=== PATIENT | female | born 1935 | race Caucasian/White ===

== ENCOUNTER 2017-08-14 07:30 | Inpatient (IN) | payer MEDICARE, OTHER ==
[~2017-08-14] VITALS: Ht 165.1 cm; Wt 70.0 kg
[2017-08-14] MEDS ORDERED: PLEASE ENTER ALLERGIES MC SCH (08:00)
[2017-08-14] MEDS ORDERED: SODIUM CHLORIDE 0.9% 1,000ML IVBOLUS ONE ×2 (08:00→12:00)
[2017-08-14] MEDS ORDERED: ACETAMINOPHEN 500 MG TABLET PO ONE (08:00)
[2017-08-14] MEDS ORDERED: PLEASE ENTER HEIGHT AND WEIGHT MC SCH (08:00)
[2017-08-14 08:41] LABS: ALANINE AMINOTRANSFERASE 36 U/L (12-78); ALBUMIN 3.2 g/dL (3.4-5.0); ANION GAP 10 mmol/L (5-15); CALCIUM 9.5 mg/dL (8.5-10.1); CHLORIDE 110 mmol/L (98-107); CREATININE 1.16 mg/dL (0.55-1.02)
[2017-08-14 08:44] LABS: ALKALINE PHOSPHATASE 67 U/L (45-117); BILIRUBIN,TOTAL 2.2 mg/dL (0.2-1.0); TOTAL PROTEIN 7.2 g/dL (6.4-8.2)
[2017-08-14 08:56] LABS: MEAN CORPUSCULAR HEMOGLOBIN 33.1 pg (27.0-34.8); MEAN CORPUSCULAR HGB CONC 34.2 g/dL (32.4-35.8); MEAN CORPUSCULAR VOLUME 96.8 fL (80-100); MEAN PLATELET VOLUME 9.5 fL (7.4-10.4); PLATELET COUNT 61 x10^3/uL (130-400); RED BLOOD COUNT 3.56 x10^6/uL (3.82-5.3); RED CELL DISTRIBUTION WIDTH 14.2 % (9.6-15.2)
[2017-08-14 08:57] LABS: MD YES
[2017-08-14 09:02] LABS: BAND#(MANUAL) 2.67 x10^3/uL; BANDS%(MANUAL) 23 % (0-7); EOS#(MANUAL) 0.12 x10^3/uL (0.0-0.4); EOS% (MANUAL) 1 % (1-7); LYMPH#(MANUAL) 0.35 x10^3/uL (1-3.4); LYMPHS% (MANUAL) 3 % (22-44); MONOS#(MANUAL) 0.81 x10^3/uL (0.3-2.7); MONOS% (MANUAL) 7 % (2-9); SEG#(MANUAL) 7.66 x10^3/uL (1.8-6.8); SEGS% (MANUAL) 66 % (42-75)
[2017-08-14 09:03] LABS: <PLATELET ESTIMATE> DECREASED; <RBC MORPHOLOGY> NORMAL
[2017-08-14 09:04] LABS: LARGE PLATELETS 1+
[2017-08-14] MEDS ORDERED: MELO15TA24 PO (09:06)
[2017-08-14] MEDS ORDERED: METF500T5 PO (09:06)
[2017-08-14] MEDS ORDERED: MAGNESIUM PEG (09:06)
[2017-08-14] MEDS ORDERED: LOSA1TAB25 PO (09:06)
[2017-08-14] MEDS ORDERED: SIMV10TA3 PO (09:06)
[2017-08-14] MEDS ORDERED: MULT-658 PO (09:06)
[2017-08-14] MEDS ORDERED: VITAMIN D PO (09:06)
[2017-08-14] MEDS ORDERED: METO50TA4 PO (09:06)
[2017-08-14] MEDS ORDERED: FISH OIL PO (09:06)
[2017-08-14] MEDS ORDERED: PREG75CA PO (09:06)
[2017-08-14] MEDS ORDERED: AMLO10TA2 PO (09:06)
[2017-08-14 09:43] LABS: CULTURE INDICATED? YES; MICROSCOPIC INDICATED
[2017-08-14] MEDS ORDERED: ACETAMINOPHEN 500 MG TABLET ONE (09:58)
[2017-08-14] MEDS ORDERED: ACETAMINOPHEN 325 MG SUPP ONE (10:07)
[2017-08-14] MEDS ORDERED: ACETAMINOPHEN 650 MG SUPP PR ONE (10:30)
[2017-08-14] MEDS ORDERED: ACETAMINOPHEN 120 MG SUPP PR ONE (10:30)
[2017-08-14] MEDS ORDERED: CEFTRIAXONE PMX 1GM/50ML 50 ML IVPB ONE (11:00)
[2017-08-14] MEDS ORDERED: AZITHROMYCIN 500 MG in SODIUM CHLORIDE 0.9% 250 ML IV ONE (11:00)
[2017-08-14] MEDS ORDERED: CEFTRIAXONE PMX 1GM/50ML 50 ML ONE (11:29)
[2017-08-14] MEDS ORDERED: ONDANSETRON ODT 4 MG PO PRN (13:00)
[2017-08-14] MEDS ORDERED: LABETALOL 5MG/ML, 20ML IVPush PRN (13:00)
[2017-08-14] MEDS ORDERED: LACTATED RINGERS 1,000 ML IV SCH (13:00)
[2017-08-14] MEDS ORDERED: ONDANSETRON 2MG/ML, 2ML IVPush PRN (13:00)
[2017-08-14 13:01] LABS: INTERNATIONAL NORMALIZED RATIO 1.24 (0.93-1.1); PROTHROMBIN TIME 12.7 Seconds (9.6-11.5)
[2017-08-14 13:12] LABS: FREE T4 (FREE THYROXINE) 1.27 ng/dL (0.76-1.46); THYROID STIMULATING HORMONE 1.52 mIU/L (0.358-3.740)
[2017-08-14 14:38] VITALS: BP 132/51
[2017-08-14 15:34] VITALS: BP 128/63
[2017-08-14] MEDS ORDERED: POTASSIUM PHOSPHATE 44 MEQ in SODIUM CHLORIDE 0.9% 500 ML IV ONE (19:30)
[2017-08-14] MEDS ORDERED: SODIUM PHOSPHATE 4 MEQ/ML IV SCH (19:30)
[2017-08-14] MEDS ORDERED: SODIUM PHOSPHATE 30 MMOL in SODIUM CHLORIDE 0.9% 500 ML IV ONE (19:30)
[2017-08-14] MEDS ORDERED: MAGNESIUM SULFATE PMX 4GM/100M 100 ML IV ONE (19:30)
[2017-08-14 19:45] VITALS: BP 137/54
[2017-08-14] MEDS: CEFTRIAXONE PMX 1GM/50ML 50 ML IV SCH (20:51)
[2017-08-14] MEDS: PANTOPRAZOLE 40 MG IV IVPush SCH (21:59)
[2017-08-14] MEDS: RIFAXIMIN 550 MG TABLET PO SCH (21:59)
[2017-08-14] MEDS: SIMVASTATIN 10 MG TABLET PO SCH (21:59)
[2017-08-14] MEDS: LACTULOSE 20 GM/30 ML UDC PO SCH (21:59)
[2017-08-14] MEDS: DOXYCYCLINE 100MG TABLET PO SCH ×2 (21:59→22:00)
[2017-08-15 02:36] VITALS: BP 128/56
[2017-08-15 05:30] LABS: CHLORIDE 110 mmol/L (98-107)
[2017-08-15 05:38] LABS: ALANINE AMINOTRANSFERASE 32 U/L (12-78); ALBUMIN 2.5 g/dL (3.4-5.0); ALKALINE PHOSPHATASE 49 U/L (45-117); ANION GAP 9 mmol/L (5-15); BILIRUBIN,TOTAL 1.9 mg/dL (0.2-1.0); CALCIUM 8.4 mg/dL (8.5-10.1); CREATININE 0.93 mg/dL (0.55-1.02); TOTAL PROTEIN 5.9 g/dL (6.4-8.2)
[2017-08-15 06:03] LABS: BASOPHILS # (AUTO) 0.02 x10^3/uL (0-0.1); BASOPHILS % (AUTO) 0 % (0-1); EOSINOPHILS # (AUTO) 0.15 x10^3/uL (0-0.4); EOSINOPHILS % (AUTO) 2 % (1-7); LYMPHOCYTES # (AUTO) 0.62 x10^3/uL (1-3.4); LYMPHOCYTES % (AUTO) 10 % (22-44); MD SCAN; MEAN CORPUSCULAR HEMOGLOBIN 34.3 pg (27.0-34.8); MEAN CORPUSCULAR HGB CONC 35.1 g/dL (32.4-35.8); MEAN CORPUSCULAR VOLUME 97.7 fL (80-100); MEAN PLATELET VOLUME 9.6 fL (7.4-10.4); MONOCYTES # (AUTO) 0.47 x10^3/uL (0.2-0.8); MONOCYTES % (AUTO) 7 % (2-9); NEUTROPHILS # (AUTO) 5.12 x10^3/uL (1.8-6.8); NEUTROPHILS % (AUTO) 80 % (42-75); RED BLOOD COUNT 2.98 x10^6/uL (3.82-5.3); RED CELL DISTRIBUTION WIDTH 14.5 % (9.6-15.2)
[2017-08-15 06:06] LABS: PLATELET COUNT 46 x10^3/uL (130-400)
[2017-08-15 08:38] VITALS: BP 139/60
[2017-08-15] MEDS: LACTULOSE 20 GM/30 ML UDC PO SCH ×3 (08:47→21:23)
[2017-08-15] MEDS: PANTOPRAZOLE 40 MG IV IVPush SCH ×2 (08:47→21:23)
[2017-08-15] MEDS: RIFAXIMIN 550 MG TABLET PO SCH ×2 (08:47→21:23)
[2017-08-15] MEDS: MULTIVITAMIN 1 TABLET PO SCH (08:47)
[2017-08-15] MEDS: PREGABALIN 75 MG CAPSULE PO SCH (08:47)
[2017-08-15] MEDS: DOXYCYCLINE 100MG TABLET PO SCH ×2 (08:48→21:23)
[2017-08-15] MEDS: SENNA/DOCUSATE TABLET PO SCH (08:48)
[2017-08-15] MEDS ORDERED: LACTATED RINGERS 1,000 ML IV SCH (13:00)
[2017-08-15 15:54] VITALS: BP 152/68
[2017-08-15 18:44] VITALS: BP 154/65
[2017-08-15] MEDS: CEFTRIAXONE PMX 1GM/50ML 50 ML IV SCH (21:22)
[2017-08-15] MEDS: SIMVASTATIN 10 MG TABLET PO SCH (21:23)
[2017-08-16 02:29] VITALS: BP 145/60
[2017-08-16 05:07] LABS: MEAN CORPUSCULAR HEMOGLOBIN 34.1 pg (27.0-34.8); MEAN CORPUSCULAR HGB CONC 35.2 g/dL (32.4-35.8); RED BLOOD COUNT 2.77 x10^6/uL (3.82-5.3); RED CELL DISTRIBUTION WIDTH 14.6 % (9.6-15.2)
[2017-08-16 05:14] LABS: ALANINE AMINOTRANSFERASE 30 U/L (12-78); ALBUMIN 2.4 g/dL (3.4-5.0); ANION GAP 8 mmol/L (5-15); CALCIUM 7.9 mg/dL (8.5-10.1); CHLORIDE 113 mmol/L (98-107); CREATININE 0.87 mg/dL (0.55-1.02)
[2017-08-16 05:17] LABS: ALKALINE PHOSPHATASE 47 U/L (45-117); BILIRUBIN,TOTAL 1.3 mg/dL (0.2-1.0); TOTAL PROTEIN 5.5 g/dL (6.4-8.2)
[2017-08-16 06:15] LABS: BASOPHILS # (AUTO) 0.01 x10^3/uL (0-0.1); BASOPHILS % (AUTO) 0 % (0-1); EOSINOPHILS # (AUTO) 0.27 x10^3/uL (0-0.4); EOSINOPHILS % (AUTO) 6 % (1-7); LYMPHOCYTES # (AUTO) 0.77 x10^3/uL (1-3.4); LYMPHOCYTES % (AUTO) 18 % (22-44); MD SCAN; MEAN PLATELET VOLUME 9.2 fL (7.4-10.4); MONOCYTES # (AUTO) 0.41 x10^3/uL (0.2-0.8); MONOCYTES % (AUTO) 10 % (2-9); NEUTROPHILS # (AUTO) 2.83 x10^3/uL (1.8-6.8); NEUTROPHILS % (AUTO) 66 % (42-75)
[2017-08-16 06:30] VITALS: BP 141/64
[2017-08-16 06:40] LABS: PLATELET COUNT 48 x10^3/uL (130-400)
[2017-08-16] MEDS: SENNA/DOCUSATE TABLET PO SCH (09:00)
[2017-08-16] MEDS: PREGABALIN 75 MG CAPSULE PO SCH (09:00)
[2017-08-16] MEDS: LACTULOSE 20 GM/30 ML UDC PO SCH ×3 (09:33→20:35)
[2017-08-16] MEDS: RIFAXIMIN 550 MG TABLET PO SCH ×2 (09:33→20:36)
[2017-08-16] MEDS: DOXYCYCLINE 100MG TABLET PO SCH ×2 (09:33→20:36)
[2017-08-16] MEDS: MULTIVITAMIN 1 TABLET PO SCH (09:33)
[2017-08-16] MEDS: PANTOPRAZOLE 40 MG IV IVPush SCH ×2 (09:34→20:36)
[2017-08-16 12:45] VITALS: BP 155/70
[2017-08-16] MEDS ORDERED: LACTATED RINGERS 1,000 ML IV SCH (13:00)
[2017-08-16 19:08] VITALS: BP 151/71
[2017-08-16] MEDS ORDERED: POTASSIUM PHOSPHATE 22 MEQ in SODIUM CHLORIDE 0.9% 500 ML IV ONE (20:30)
[2017-08-16] MEDS: CEFTRIAXONE PMX 1GM/50ML 50 ML IV SCH (20:35)
[2017-08-16] MEDS: SIMVASTATIN 10 MG TABLET PO SCH (20:36)
[2017-08-17 02:37] VITALS: BP 136/53
[2017-08-17 05:12] LABS: MEAN CORPUSCULAR HGB CONC 34.6 g/dL (32.4-35.8); MEAN CORPUSCULAR VOLUME 98.2 fL (80-100); RED CELL DISTRIBUTION WIDTH 14.6 % (9.6-15.2)
[2017-08-17 05:18] LABS: CALCIUM 7.6 mg/dL (8.5-10.1); CHLORIDE 113 mmol/L (98-107)
[2017-08-17 05:24] LABS: ALANINE AMINOTRANSFERASE 35 U/L (12-78); ALBUMIN 2.5 g/dL (3.4-5.0); ALKALINE PHOSPHATASE 52 U/L (45-117); BILIRUBIN,TOTAL 1.5 mg/dL (0.2-1.0); CREATININE 0.79 mg/dL (0.55-1.02); TOTAL PROTEIN 5.6 g/dL (6.4-8.2)
[2017-08-17 05:32] LABS: ANION GAP 7 mmol/L (5-15)
[2017-08-17 05:58] LABS: BASOPHILS # (AUTO) 0.01 x10^3/uL (0-0.1); BASOPHILS % (AUTO) 0 % (0-1); EOSINOPHILS # (AUTO) 0.28 x10^3/uL (0-0.4); EOSINOPHILS % (AUTO) 9 % (1-7); LYMPHOCYTES # (AUTO) 0.61 x10^3/uL (1-3.4); LYMPHOCYTES % (AUTO) 20 % (22-44); MD SCAN; MEAN PLATELET VOLUME 8.9 fL (7.4-10.4); MONOCYTES # (AUTO) 0.29 x10^3/uL (0.2-0.8); MONOCYTES % (AUTO) 10 % (2-9); NEUTROPHILS # (AUTO) 1.81 x10^3/uL (1.8-6.8); NEUTROPHILS % (AUTO) 60 % (42-75); PLATELET COUNT 52 x10^3/uL (130-400)
[2017-08-17 08:12] VITALS: BP 147/71
[2017-08-17] MEDS: LACTULOSE 20 GM/30 ML UDC PO SCH (09:00)
[2017-08-17] MEDS ORDERED: AMOXICILLIN/CLAV 875-125MG TABLET PO SCH (09:00)
[2017-08-17] MEDS: SENNA/DOCUSATE TABLET PO SCH (09:00)
[2017-08-17] MEDS: MULTIVITAMIN 1 TABLET PO SCH (09:56)
[2017-08-17] MEDS: PANTOPRAZOLE 40 MG IV IVPush SCH (09:56)
[2017-08-17] MEDS: PREGABALIN 75 MG CAPSULE PO SCH (09:56)
[2017-08-17] MEDS: DOXYCYCLINE 100MG TABLET PO SCH (09:56)
[2017-08-17] MEDS: RIFAXIMIN 550 MG TABLET PO SCH (09:56)
[2017-08-17] MEDS ORDERED: DOXY100T PO (10:51)
[2017-08-17] MEDS ORDERED: AMOX1TAB12 PO (10:51)
== END 2017-08-17 13:58 | disposition home or self-care (01) | DRG 871 ==
LOC: ED 09:52 → EDIP 11:45 → 3NE 13:19
PROVIDERS: ADMIT Hospitalist; ATTEND Hospitalist
PROC: 0W9G3ZZ Drainage of Peritoneal Cavity, Percutaneous Approach (ICD-10-PCS; principal; 2017-08-14)
PROC: 0T9B70Z Drainage of Bladder with Drainage Device, Via Natural or Artificial Opening (ICD-10-PCS; 2017-08-14)
DX: A41.9 Sepsis, unspecified organism (principal); G93.41 Metabolic encephalopathy; J18.9 Pneumonia, unspecified organism; R65.21 Severe sepsis with septic shock; N17.9 Acute kidney failure, unspecified; K72.90 Hepatic failure, unspecified without coma; D69.59 Other secondary thrombocytopenia; R16.1 Splenomegaly, not elsewhere classified; D72.825 Bandemia; E11.9 Type 2 diabetes mellitus without complications; I10 Essential (primary) hypertension; K74.60 Unspecified cirrhosis of liver; Z66 Do not resuscitate; Z80.0 Family history of malignant neoplasm of digestive organs; Z90.710 Acquired absence of both cervix and uterus; Z90.49 Acquired absence of other specified parts of digestive tract
CPT/HCPCS: 36415; 49083; 70450; 71045; 76700; 80053; 81001; 82140; 83605; 83735; 84100; 84145; 84439; 84443; 85025; 85610; 85730; 87040; 87086; 93005; 93306; 93970; 96361; 96365; J0456; J0696; C9113; J3475; J7030; J7040; J7050; J7120